=== PATIENT | female | born 1990 | race African-American/Black ===

== ENCOUNTER 2021-05-17 09:41 | Emergency (ER) | payer MEDICAID ==
[~2021-05-17] VITALS: Ht 154 cm; Wt 80.2 kg
[2021-05-17 10:31] LABS: BASOPHILS % (AUTO) 0 % (0-10); EOSINOPHILS % (AUTO) 0 % (0-10); HEMATOCRIT 36 % (35-52); LYMPHOCYTES # (AUTO) 1.4 10^3/uL (1.0-4.0); LYMPHOCYTES % (AUTO) 38 % (12-44); MEAN CORPUSCULAR HEMOGLOBIN 25 pg (25-34); MEAN CORPUSCULAR HGB CONC 30 g/dL (32-36); MEAN CORPUSCULAR VOLUME 83 fL (80-99); MEAN PLATELET VOLUME 9.4 fL (9.0-12.2); MONOCYTES # (AUTO) 0.3 10^3/uL (0.0-1.0); MONOCYTES % (AUTO) 8 % (0-12); NEUTROPHILS % (AUTO) 54 % (42-75); PLATELET COUNT 420 10^3/uL (130-400); WHITE BLOOD COUNT 3.7 10^3/uL (4.3-11.0)
[2021-05-17 10:39] LABS: ALBUMIN 4.6 GM/DL (3.2-4.5)
[2021-05-17 10:40] LABS: CHLORIDE 108 MMOL/L (98-107); SODIUM 139 MMOL/L (135-145)
[2021-05-17 10:41] LABS: CALCIUM 9.5 MG/DL (8.5-10.1)
[2021-05-17 10:42] LABS: GLUCOSE 98 MG/DL (70-105); TOTAL PROTEIN 7.6 GM/DL (6.4-8.2)
[2021-05-17 10:43] LABS: CARBON DIOXIDE 19 MMOL/L (21-32)
[2021-05-17 10:44] LABS: BILIRUBIN,TOTAL 0.4 MG/DL (0.1-1.0)
[2021-05-17 10:45] LABS: ALKALINE PHOSPHATASE 81 U/L (40-136)
[2021-05-17 10:46] LABS: CREATININE SERUM 0.96 MG/DL (0.60-1.30); GFR ESTIMATED 84
[2021-05-17 10:47] LABS: BUN/CREATININE RATIO 6
[2021-05-17 10:48] LABS: ALANINE AMINOTRANSFERASE 21 U/L (0-55)
[2021-05-17 11:09] LABS: BILIRUBIN,URINE NEGATIVE (NEGATIVE); CLARITY,URINE CLEAR; COLOR,URINE YELLOW; GLUCOSE, URINE (UA) NEGATIVE (NEGATIVE); KETONES,URINE TRACE (NEGATIVE); LEUKOCYTE ESTERASE ,URINE NEGATIVE (NEGATIVE); NITRITE,URINE NEGATIVE (NEGATIVE); PROTEIN,URINE NEGATIVE (NEGATIVE)
[2021-05-17 11:17] LABS: BACTERIA,URINE TRACE /HPF; WBC,URINE RARE /HPF
[2021-05-17 11:21] LABS: AMPHETAMINE SCREEN, URINE NEGATIVE (NEGATIVE); BARBITURATE SCREEN URINE NEGATIVE (NEGATIVE); BENZODIAZEPINES SCREEN URINE NEGATIVE (NEGATIVE); CANNABINOID SCREEN, URINE NEGATIVE (NEGATIVE); COCAINE SCREEN URINE NEGATIVE (NEGATIVE); METHADONE STAT NEGATIVE (NEGATIVE); METHAMPHETAMINE SCREEN URINE S NEGATIVE (NEGATIVE); OPIATE SCREEN URINE NEGATIVE (NEGATIVE); OXYCODONE STAT NEGATIVE (NEGATIVE); PROPOXYPHENE STAT NEGATIVE (NEGATIVE); TRICYCLIC ANTIDEPRESSANTS SCRE NEGATIVE (NEGATIVE)
--- NOTE | 2021-05-17 11:26 | ED GU-Female ---
General Chief Complaint: Female Reproductive Stated Complaint: CRAMPING/VAG BLEEDING, COVID SYMPTOMS, 6 WKS PREG Nursing Triage Note: Pt reports recent positive test and vaginal bleeding x3 days. Pt also reports loss of appetite, congestion, and loss of taste/smell. Pt states she was seen at a clinic yesterday where she had a positive test. Pt also requesting STD testing while in ED. Source: patient Exam Limitations: no limitations History of Present Illness Date Seen by Provider: May 17, 2021 Time Seen by Provider: 10:45 Initial Comments Patient presents ER by private conveyance with chief complaint that she has been having vaginal bleeding since yesterday and some right lower quadrant abdominal pain cramping like. She has had a right tube and ovary removed after adhesions related to C-sections but no other abdominal surgeries. No fevers or chills. For the past week she has had some watery diarrhea and nausea and general malaise as well as loss of sense of taste. No known history of diverticulitis. She says she routinely sees her primary care doctor and [place] where she lives but she is down here visiting. She denies any fevers or chills. Has had some brown vaginal discharge. Her last menstrual period was sometime in the beginning of March and she had a positive test first time yesterday. about 6 weeks Allergies and Home Medications Allergies Coded Allergies: No Known Drug Allergies (Unverified , 05/17/21) Home Medications Cephalexin 500 Mg Tablet, 500 MG PO QID Prescribed by: LINDSAY BROWN on 05/17/21 1424 Ondansetron 4 Mg Tab.rapdis, 4 MG PO Q6H PRN for NAUSEA/VOMITING Prescribed by: LINDSAY BROWN on 05/17/21 1424 Patient Home Medication List Home Medication List Reviewed: Yes Review of Systems Review of Systems Constitutional: No chills, No fever; malaise EENTM: see HPI (Loss of sense of taste and smell); No ear discharge, No ear pain Respiratory: No cough, No phlegm, No short of breath Cardiovascular: No chest pain, No edema Gastrointestinal: No abdominal pain, No constipation; diarrhea (1 occasional watery stools x1 week), nausea Genitourinary: denies burning, denies discharge Musculoskeletal: No back pain, No joint pain All Other Systemes Reviewed Negative Unless Noted: Yes Past Civciyd-Hyacct-Wyyqnn Hx Patient Social History Tobacco Use?: No Substance use?: No Alcohol Use?: No Pt feels they are or have been: No Immunizations Up To Date First/Initial COVID19 Vaccinat: NOVEMBER 2020 COVID19 Vaccine Cemetery Counselor: SIENNA Past Medical History Surgery/Hospitalization HX: ANEMIA REQUIRING TRANSFUSIONS, HX BLOOD CLOTS, CSECTION X4 Last Menstrual Period: Apr 04, 2021 Physical Exam Vital Signs Vital Signs - First Documented 05/17/21 09:55 Temp 36.7 Pulse 88 Resp 18 B/P (MAP) 129/79 (96) Pulse Ox 100 O2 Delivery Room Air Capillary Refill : Less Than 3 Seconds Height, Weight, BMI Height: '" Weight: lbs. oz. kg; 33.00 BMI Method: General Appearance: WD/WN, mild distress HEENT: PERRL/EOMI, normal ENT inspection, TMs normal; No pharynx normal (Oral mucosa is dry, noninjected nonerythematous retropharynx) Neck: full range of motion, normal inspection Cardiovascular: normal peripheral pulses, regular rate, rhythm, no edema Respiratory: lungs clear, normal breath sounds, no respiratory distress, no accessory muscle use Gastrointestinal: normal bowel sounds, soft, other (Right lower quadrant tenderness to palpation with positive right leg lift psoas sign) Back: normal inspection, no CVA tenderness, no vertebral tenderness Extremities: normal range of motion, non-tender Neurologic/Psychiatric: alert, normal mood/affect, oriented x 3 Skin: normal color, warm/dry Progress/Results/Core Measures Suspected Sepsis SIRS Temperature: Pulse: 88 Respiratory Rate: 18 Laboratory Tests 05/17/21 10:07: White Blood Count 3.7L Blood Pressure 129 /79 Mean: 96 Laboratory Tests 05/17/21 10:07: Creatinine 0.96, Platelet Count 420H, Total Bilirubin 0.4 Results/Orders Lab Results Laboratory Tests Test 05/17/21 09:58 05/17/21 10:07 05/17/21 11:04 05/17/21 11:52 Range/Units Influenza Type A (RT-PCR) Not Detected Not Detecte Influenza Type B (RT-PCR) Not Detected Not Detecte SARS-CoV-2 RNA (RT-PCR) Not Detected Not Detecte White Blood Count 3.7 L 4.3-11.0 10^3/uL Red Blood Count 4.40 3.80-5.11 10^6/uL Hemoglobin 11.0 L 11.5-16.0 g/dL Hematocrit 36 35-52 % Mean Corpuscular Volume 83 80-99 fL Mean Corpuscular Hemoglobin 25 25-34 pg Mean Corpuscular Hemoglobin Concent 30 L 32-36 g/dL Red Cell Distribution Width 19.8 H 10.0-14.5 % Platelet Count 420 H 130-400 10^3/uL Mean Platelet Volume 9.4 9.0-12.2 fL Immature Granulocyte % (Auto) 0 % Neutrophils (%) (Auto) 54 42-75 % Lymphocytes (%) (Auto) 38 12-44 % Monocytes (%) (Auto) 8 0-12 % Eosinophils (%) (Auto) 0 0-10 % Basophils (%) (Auto) 0 0-10 % Neutrophils # (Auto) 2.0 1.8-7.8 10^3/uL Lymphocytes # (Auto) 1.4 1.0-4.0 10^3/uL Monocytes # (Auto) 0.3 0.0-1.0 10^3/uL Eosinophils # (Auto) 0.0 0.0-0.3 10^3/uL Basophils # (Auto) 0.0 0.0-0.1 10^3/uL Immature Granulocyte # (Auto) 0.0 0.0-0.1 10^3/uL D-Dimer < 0.27 0.00-0.49 UG/ML Sodium Level 139 135-145 MMOL/L Potassium Level 4.0 3.6-5.0 MMOL/L Chloride Level 108 H 98-107 MMOL/L Carbon Dioxide Level 19 L 21-32 MMOL/L Anion Gap 12 5-14 MMOL/L Blood Urea Nitrogen 6 L 7-18 MG/DL Creatinine 0.96 0.60-1.30 MG/DL Estimat Glomerular Filtration Rate 84 BUN/Creatinine Ratio 6 Glucose Level 98 70-105 MG/DL Calcium Level 9.5 8.5-10.1 MG/DL Corrected Calcium 8.5-10.1 MG/DL Total Bilirubin 0.4 0.1-1.0 MG/DL Aspartate Amino Transf (AST/SGOT) 17 5-34 U/L Alanine Aminotransferase (ALT/SGPT) 21 0-55 U/L Alkaline Phosphatase 81 40-136 U/L C-Reactive Protein High Sensitivity 0.03 0.00-0.50 MG/DL Total Protein 7.6 6.4-8.2 GM/DL Albumin 4.6 H 3.2-4.5 GM/DL Procalcitonin 0.00 <0.10 NG/ML Human Chorionic Gonadotropin, Quant 2612 H <5 MIU/ML Urine Color YELLOW Urine Clarity CLEAR Urine pH 6.0 5-9 Urine Specific Brewster >=1.030 1.016-1.022 Urine Protein NEGATIVE NEGATIVE Urine Glucose (UA) NEGATIVE NEGATIVE Urine Ketones TRACE H NEGATIVE Urine Nitrite NEGATIVE NEGATIVE Urine Bilirubin NEGATIVE NEGATIVE Urine Urobilinogen 0.2 < = 1.0 MG/DL Urine Leukocyte Esterase NEGATIVE NEGATIVE Urine RBC (Auto) NEGATIVE NEGATIVE Urine RBC NONE /HPF Urine WBC RARE /HPF Urine Squamous Epithelial Cells 2-5 /HPF Urine Crystals NONE /LPF Urine Bacteria TRACE /HPF Urine Casts NONE /LPF Urine Mucus MODERATE H /LPF Urine Culture Indicated NO Urine Opiates Screen NEGATIVE NEGATIVE Urine Oxycodone Screen NEGATIVE NEGATIVE Urine Methadone Screen NEGATIVE NEGATIVE Urine Propoxyphene Screen NEGATIVE NEGATIVE Urine Barbiturates Screen NEGATIVE NEGATIVE Ur Tricyclic Antidepressants Screen NEGATIVE NEGATIVE Urine Phencyclidine Screen NEGATIVE NEGATIVE Urine Amphetamines Screen NEGATIVE NEGATIVE Urine Methamphetamines Screen NEGATIVE NEGATIVE Urine Benzodiazepines Screen NEGATIVE NEGATIVE Urine Cocaine Screen NEGATIVE NEGATIVE Urine Cannabinoids Screen NEGATIVE NEGATIVE Micro Results Microbiology 05/17/21 Wet Prep - Final, Complete My Orders Orders - LINDSAY BROWN 19 Inhouse Test (05/17/21 09:52) Ua Culture If Indicated (05/17/21 09:52) Urine Bedside (05/17/21 09:52) Influenza A And B By Pcr (05/17/21 09:52) Cbc With Automated Diff (05/17/21 09:52) Comprehensive Metabolic Panel (05/17/21 09:52) Hs C Reactive Protein (05/17/21 09:52) Procalcitonin (Pct) (05/17/21 09:52) Fibrin Degradation Products (05/17/21 09:52) Hcg,Quantitative (05/17/21 09:52) Drug Screen Stat (Urine) (05/17/21 10:21) Syphilis Antibody Screen (05/17/21 11:14) Chlamydia Trachomatis Swab (05/17/21 11:14) Neisseria Gonorrhea Swab (05/17/21 11:14) Wet Prep (05/17/21 11:14) Ondansetron Injection (Zofran Injectio (05/17/21 11:30) Fentanyl Inj (Sublimaze Injection) (05/17/21 11:30) Us Ob Single Fetus<14 [id number] (05/17/21 11:17) Ed Iv/Invasive Line Start (05/17/21 11:17) Ns Iv 1000 Ml (Sodium Chloride 0.9%) (05/17/21 11:30) Abo Rh Type (05/17/21 14:12) Ceftriaxone (Rocephin) (05/17/21 14:30) Azithromycin Tablet (Zithromax Tablet) (05/17/21 14:30) Medications Given in ED Current Medications Medications Dose Ordered Sig/Andrea Route Start Time Stop Time Status Last Admin Dose Admin Fentanyl Citrate 50 mcg ONCE ONCE IVP 05/17/21 11:30 05/17/21 11:31 DC 05/17/21 11:54 50 MCG Ondansetron HCl 4 mg ONCE ONCE IVP 05/17/21 11:30 05/17/21 11:31 DC 05/17/21 11:54 4 MG Vital Signs/I&O 05/17/21 09:55 Temp 36.7 Pulse 88 Resp 18 B/P (MAP) 129/79 (96) Pulse Ox 100 O2 Delivery Room Air Capillary Refill : Less Than 3 Seconds Blood Pressure Mean: 96 Progress Note #1: Time: 13:45 Progress Note Based on her presentation of loss of sense of taste and smell and her nausea vomiting and diarrhea for 1 week we did a Covid test which was negative. She is having some brownish discharge followed by bright red bleeding with some clots. She has asked us to do STD testing after discussing it and so this has been performed. Her wet prep was unremarkable. Her vaginal exam by speculum was unremarkable with a closed cervix no blood in the vaginal vault and no mucous plug seen. The patient will be treated appropriately for STDs and probably put on doxycycline for possible PID. Part her pain could also be because she appears to have a questionable viable sac with no pole and I suspect she is having a threatened miscarriage. We will make follow-up with Dr. La or the OB provider of her choice Progress Note #2: Time: 14:17 Progress Note Waiting on the results of the Rh ABO. Put a call into Dr. La to try and set up some follow-up in the next 3 to 4 days. We will initiate some antibiotics Rocephin and azithromycin today. Probably put her out on second-generation cephalosporins. Diagnostic Imaging Diagonstic Imaging: Ultrasound Plain Films/CT/US/NM/MRI: pelvis Comments [facility] [place] NAME: MAX ARVIZU [facility] REC#: [id number] PT STATUS: REG ER : 1990 PHYSICIAN: LINDSAY BROWN MD ADMIT DATE: 05/17/21/ER Signed Date of Exam:05/17/21 US OB SINGLE FETUS<14 [id number] EXAM: First Trimester Ultrasound INDICATIONS: 1st trimester bleeding. TECHNIQUE: The pelvis was scanned using transabdominal and endovaginal technique. COMPARISON: None. FINDINGS: Endovaginal sonography demonstrates a single intrauterine cystic structure. No pole is identified. No yolk sac is seen. No findings of subchorionic hemorrhage. The left ovary is nonvisualized. The right ovary is normal and measures 3.8 x 2.0 x 2.2 cm. biometry: Mean sac diameter 3.6 mm: 4 weeks, 6 days. IMPRESSION: A single intrauterine cystic structure, nonvisualized pole or yolk sac. Findings compatible with intrauterine of uncertain viability. Recommend correlation with beta hCG and followup ultrasound in 14 days to confirm viability. Dictated by: Dictated on workstation # [id number] Dict: 05/17/21 1247 Trans: 05/17/21 1337 [facility] [id number] Interpreted by: TREVER CASTANEDA DO Electronically signed by: TREVER CASTANEDA DO 05/17/21 133 Reviewed: Reviewed by Me Consults Consults : Consulting Physician: KANDIS LA DO Consults Notes Discussed the case with Dr. Bell she agrees with antibiotic selection. She agrees with either following up with her or one of her partners in the next 2 to 3 days in the clinic. Departure Impression Primary Impression: Threatened miscarriage in early Additional Impression: PID (acute pelvic inflammatory disease) Disposition: HOME, SELF-CARE Condition: Stable Departure-Patient Inst. Decision time for Depature: 14:34 Referrals: NO,LOCAL PHYSICIAN (PCP) Primary Care Physician KANDIS LA DO Patient Instructions: Threatened Miscarriage (DC), Pelvic Inflammatory Disease ED Add. Discharge Instructions: We have sent some tests that will result in the next 2 to 3 days. You may review these results through your OB provider's office. Follow-up with Dr. La or one of her partners by calling today for an appointment in 2 to 3 days. She can repeat your quantitative hCG and help you determine whether you are having a miscarriage or not. She can also help you manage her symptoms. supervisor picking crew the Keflex and take 500 mg 4 times a day for the next week. Drink plenty fluids and use Tylenol 1000 mg every 8 hours as necessary for pain. Heating pads can be helpful for pain. Zofran 1 tablet every 6 hours as necessary for nausea and/or vomiting. Return to the ER promptly for fever, intractable vomiting or pain. All discharge instructions reviewed with patient and/or family. Voiced understanding. Scripts Ondansetron (Ondansetron Odt) 4 Mg Tab.rapdis 4 MG PO Q6H PRN for NAUSEA/VOMITING, #8 TAB 0 Refills Prov: LINDSAY BROWN 05/17/21 Cephalexin (Cephalexin) 500 Mg Tablet 500 MG PO QID for 7 Days, #28 TAB 0 Refills Prov: LINDSAY BROWN 05/17/21 Work/School Note: Work Release Form Date Seen in the Emergency Department: May 17, 2021 Return to Work: May 18, 2021 Restrictions: No Restrictions Copy Copies To 1: KANDIS LA TITUS J May 17, 2021 11:26
[2021-05-17] MEDS ORDERED: ONDANSETRON 4 MG/2 ML (SDV) Z0FRAN IVP ONE (11:30)
[2021-05-17] MEDS ORDERED: fentaNYL INJ 100 MCG/2 ML AMP IVP ONE (11:30)
[2021-05-17] MEDS ORDERED: NS IV 1000 ML 1,000 ML IV SCH (11:30)
--- NOTE | 2021-05-17 12:55 | Diagnostic Imaging Report ---
EXAM: First Trimester Ultrasound INDICATIONS: 1st trimester bleeding. TECHNIQUE: The pelvis was scanned using transabdominal and endovaginal technique. COMPARISON: None. FINDINGS: Endovaginal sonography demonstrates a single intrauterine cystic structure. No pole is identified. No yolk sac is seen. No findings of subchorionic hemorrhage. The left ovary is nonvisualized. The right ovary is normal and measures 3.8 x 2.0 x 2.2 cm. biometry: Mean sac diameter 3.6 mm: 4 weeks, 6 days. IMPRESSION: A single intrauterine cystic structure, nonvisualized pole or yolk sac. Findings compatible with intrauterine of uncertain viability. Recommend correlation with beta hCG and followup ultrasound in 14 days to confirm viability. Dictated by: Dictated on workstation # [id number]
[2021-05-17] MEDS ORDERED: ONDA4TAB11 PO (14:24)
[2021-05-17] MEDS ORDERED: CEPH500T PO (14:24)
[2021-05-17] MEDS ORDERED: cefTRIAXone 1,000 MG in WATER (STERILE) FOR INJECTION 10 ML IV ONE (14:30)
[2021-05-17] MEDS ORDERED: AZITHROMYCIN 250 MG TAB (ZITHROMAX) PO ONE (14:30)
[2021-05-17 14:49] VITALS: BP 126/80
--- OUTSIDE RECORDS SUMMARY | 2021-05-17 14:57 | XMS REPORT ---
Author Author [facility] Organization [facility] Address Unknown Phone Unavailable Care Team Providers Care Horticultural Worker Name Role Phone Alise Lakhani Unavailable PROBLEMS Type Condition ICD9-CM Code RPP49-FW Code Onset Dates Condition S tatus W/U Status Risk SNOMED Code Notes Problem Obsessive-compulsive behavior R46.81 Aug, Activ e confirmed [id number] Addiction - opiates. last used in aug t and going to counseling Problem Opioid dependence, in remission F11.21 Aug, Act edmond confirmed [id number] Opioid dependence in remissi on - Problem Encounter for immunization Z23. 02 Aug, 2018 Active confirmed [id number] Immunization advised - Problem Other specified counseling Z71.89 Jul, Active confirmed [id number] Telephone encounter - Problem Dietary counseling and surveillance Z71.3 02 N 2017 Active confirmed [id number] Dietary management e ducation, guidance, and counseling - ALLERGIES No Information ENCOUNTERS from 1990 to 2021-03-24 Encounter Location Date Provider Diagnosis [address] [address] [place] [address] Mar Alise Lakhani Encounter for observation for suspected exposure to other biological agents ruled out Z03.818 IMMUNIZATIONS Vaccine Route Administration Date Status Influenza IM Intramuscular Aug 02, 2018 Administered SOCIAL HISTORY Sex Assigned At : Social History Observation Description Sex Assigned At Female REASON FOR REFERRAL No Information VITAL SIGNS No information MEDICATIONS No Information PROCEDURES No Information RESULTS Component Value Reference Range SARS Covid-19 ID Now FELISA (POC) Reviewed date:03/24/2021 13:43:05 Interpretation:Negative Performing Lab: REASON FOR VISIT COVID TEST Goals Section No Information Health Concerns No Information MEDICAL EQUIPMENT No Information MENTAL STATUS No Information FUNCTIONAL STATUS No Information ASSESSMENTS Encounter Date Diagnosis Assessment Notes Treatment Notes Treatm ent Clinical Notes Mar, Encounter for observation fo r suspected exposure to other biological agents ruled out (ICD-10 - Z03.818) PLAN OF TREATMENT No Information Insurance Providers Payer Name Payer Address Payer Phone Insured Name Patient Relati onship to Insured Coverage Start Date Coverage End Date [facility] Program [facility] [id number] [facility] [id number] MAX MARQUEZ 2021 2021 Medicaid of [place] [address] [facility] [id number] MAX BARROSO 2018
== END 2021-05-17 14:49 | disposition home or self-care (01) ==
LOC: ER 09:44
DX: O20.0 Threatened abortion (principal); O23.591 Infection of other part of genital tract in pregnancy, first trimester; Z90.721 Acquired absence of ovaries, unilateral; Z20.822 Contact with and (suspected) exposure to COVID-19; Z3A.01 Less than 8 weeks gestation of pregnancy
CPT/HCPCS: 36415; 76801; 80053; 80306; 81000; 84145; 84702; 85025; 85379; 86141; 86780; 86900; 86901; 87210; 87491; 87591; 87636